=== PATIENT | female | born 1975 | race Asian ===

== ENCOUNTER 2022-10-10 19:41 | Inpatient (IN) | payer BC ==
[~2022-10-10] VITALS: Ht 160 cm; Wt 49.9 kg
[2022-10-10] MEDS ORDERED: SODIUM CHLORIDE 0.9% 1000ML BAG (SEPSIS BOLUS) IV ONE (20:30)
[2022-10-10 20:49] LABS: CHLORIDE 93 mEq/L (98-107); INDEX HEMOLYSI 3 (1-3); INDEX ICTERIC 5 (1-4); INDEX LIPEMIC 1 (1-3); POTASSIUM 5.7 mEq/L (3.5-5.1); SODIUM 124 mEq/L (136-145)
[2022-10-10 20:59] LABS: ALANINE AMINOTRANSFERASE 353 IU/L (13-61); ALBUMIN 1.4 g/dL (3.4-5.0); BILIRUBIN TOTAL 19.2 mg/dL (0.1-1.0); CALCIUM 10.7 mg/dL (8.5-10.1); CARBON DIOXIDE 16 mEq/L (21-32); CREATININE 1.7 mg/dL (0.6-1.3); ETHANOL BLOOD < 10 mg/dL (-10); GLUCOSE 104 mg/dL (70-105); NT PRO B-TYPE NATRIURETIC PEP 128 pg/mL (5-125); PROTEIN TOTAL 4.6 g/dL (6.0-8.3); TROPONIN I HIGH SENSITIVITY 14 ng/L (<54)
[2022-10-10 21:00] LABS: LACTIC ACID 4.4 mmol/L (0.4-2.0)
[2022-10-10 21:03] LABS: UREA NITROGEN BLOOD 82 mg/dL (7-21)
[2022-10-10 21:16] LABS: HCG SCREEN NEGATIVE
[2022-10-10 21:38] LABS: MEAN CORPUSCULAR HEMOGLOBIN 32.6 pg (28.0-32.0); MEAN CORPUSCULAR HGB CONC 32.5 g/dL (31.0-37.0); MEAN CORPUSCULAR VOLUME 100.2 fL (81.0-99.0); RED BLOOD CELL COUNT 2.15 mill/uL (4.2-5.4); RED CELL DISTRIBUTION WIDTH 20.8 % (11.6-14.6); WHITE BLOOD COUNT 3.6 x1000/uL (4.5-11.0)
[2022-10-10 21:46] LABS: ASPARTATE AMINOTRANSFERASE 5008 IU/L (15-37)
[2022-10-10 21:54] LABS: DIFFERENTIAL COMMENT 1
[2022-10-10 21:58] LABS: HEMATOCRIT. 21.5 % (36.0-48.0); PLATELET 36 x1000/uL (130-400)
[2022-10-10] MEDS ORDERED: ALBUTEROL (0.083%) 2.5MG/3ML NEB HHN ONE (22:15)
[2022-10-10] MEDS ORDERED: CALCIUM CHLORIDE 1GM/10ML SYR IV ONE (22:15)
[2022-10-10] MEDS ORDERED: CEFTRIAXONE 1GM PREMIX 50 ML IV ONE (22:15)
[2022-10-10] MEDS ORDERED: SODIUM BICARBONATE 8.4% 1 MEQ/ML 50ML SYR IV ONE (22:15)
[2022-10-10 22:25] LABS: ANISOCYTOSIS 2+; PLATELET ESTIMATE DECREASED
[2022-10-10] MEDS ORDERED: VANCOMYCIN 1G PREMIX 200 ML IV SCH (22:30)
[2022-10-10] MEDS ORDERED: CLONIDINE 0.1MG TABLET PO PRN (23:15)
[2022-10-10] MEDS ORDERED: DEXT 5%/0.9% NACL 1,000 ML IV ONE (23:15)
[2022-10-10] MEDS ORDERED: IPRATROPIUM/ALBUTEROL 0.5-3(2.5)MG/3ML NEB HHN PRN (23:15)
[2022-10-10] MEDS ORDERED: PIPERACILLIN/TAZ 3.375G PREMIX 50 ML IV NR (23:15)
[2022-10-10] MEDS ORDERED: ZOLPIDEM TARTRATE 5MG TABLET PO PRN (23:15)
[2022-10-10] MEDS ORDERED: ENOXAPARIN 40MG/0.4ML SYR SUBCUT SCH (23:15)
[2022-10-10] MEDS ORDERED: DOCUSATE SODIUM 100MG CAPSULE PO PRN (23:15)
[2022-10-10] MEDS ORDERED: ACETAMINOPHEN 325MG TABLET PO PRN ×2 (23:15)
[2022-10-10] MEDS ORDERED: GUAIFENESIN 200MG/10ML SUGAR FREE UDC PO PRN (23:15)
[2022-10-10] MEDS ORDERED: ONDANSETRON HCL 4MG/2ML INJ IV PRN (23:15)
[2022-10-10] MEDS ORDERED: LORAZEPAM 0.5MG TABLET PO PRN (23:15)
[2022-10-10 23:46] VITALS: PULSE 93; RESP 18; O2SAT 98
[2022-10-11] LABS: BG BASE EXCESS -4.8 mmol/L (-2.0-2.0); BG CARBOXYHEMOGLOBIN 0.7 % (0.5-1.5); BG DEOXYHEMOGLOBIN 1.3 % (0.0-5.0); BG FRACTION INSPIRED OXYGEN 32; BG HCO3 ACT 18.5 mmol/L (22.0-26.0); BG METHEMOGLOBIN 0.1 % (0.0-1.5); BG OXYGEN SATURATION 98.7 % (92.0-98.5); BG OXYHEMOGLOBIN 97.9 % (94.0-97.0); BG PCO2 27.6 mmHg (35.0-45.0); BG PH 7.445 (7.350-7.450); BG PO2 136.8 mmHg (75.0-100.0); BG SAMPLE SITE RIGHT RADIAL; BG TOTAL HEMOGLOBIN 8.2 g/dL (12.0-18.0); BG VENT MODE NASAL CANNULA
[2022-10-11 01:06] LABS: T4 FREE 0.83 ng/dL (0.76-1.46); THYROID STIMULATING HORMONE 0.44 uIU/mL (0.36-3.74)
[2022-10-11 01:56] LABS: VITAMIN B12 SERUM > 2000 pg/mL (211-911)
[2022-10-11] MEDS ORDERED: SODIUM CHLORIDE 0.9% 250 ML IV ONE (02:30)
[2022-10-11 02:41] VITALS: BP 85/46; PULSE 85; RESP 18; TEMP 97.1
[2022-10-11 03:37] LABS: BILIRUBIN DIRECT 15.1 mg/dL (0.0-0.2)
[2022-10-11 05:14] LABS: PROTHROMBIN TIME 39.8 sec (9.6-11.0)
[2022-10-11 05:16] LABS: D-DIMER 20.2 mg/L FEU (<0.50); INR 4.1
[2022-10-11] MEDS: PIPERACILLIN/TAZOBACTAM 3.375G in DEXT 5% WATER 50ML IV SCH ×3 (06:13→23:48)
[2022-10-11 07:56] VITALS: BP 67/34; PULSE 78; RESP 20; TEMP 98
[2022-10-11 08:27] LABS: CREATINE KINASE MB FRACTION 1.5 ng/mL (0.5-3.6)
[2022-10-11] MEDS ORDERED: DEXT 5%/0.45% NACL 1000ML 1,000 ML IV SCH ×2 (08:30→13:15)
[2022-10-11 09:17] LABS: HEMATOCRIT 22.5 % (36.0-48.0); HEMOGLOBIN 7.4 g/dL (12.0-16.0); MEAN CORPUSCULAR HEMOGLOBIN 32.9 pg (28.0-32.0); MEAN CORPUSCULAR VOLUME 99.7 fL (81.0-99.0); RED BLOOD CELL COUNT 2.26 mill/uL (4.2-5.4); RED CELL DISTRIBUTION WIDTH 20.8 % (11.6-14.6)
[2022-10-11 09:34] LABS: POTASSIUM 5.7 mEq/L (3.5-5.1)
[2022-10-11 09:54] LABS: CALCIUM 11.7 mg/dL (8.5-10.1); CREATININE 1.8 mg/dL (0.6-1.3); PHOSPHORUS 7.6 mg/dL (2.5-4.9)
[2022-10-11 11:02] VITALS: BP 69/33; PULSE 73; RESP 18; TEMP 98
[2022-10-11 12:09] LABS: INR 4.4; PARTIAL THROMBOPLASTIN TIME 118.9 sec (23.4-31.0); PROTHROMBIN TIME 43.4 sec (9.6-11.0)
[2022-10-11 12:16] LABS: HEPATITIS B SURFACE ANTIGEN NEGATIVE
[2022-10-11 12:44] LABS: HEPATITIS B CORE AB IGM NEGATIVE; HEPATITIS C VIR.AB 0.15 INDEXVAL (0.00-0.80)
[2022-10-11 12:46] LABS: HEPATITIS A AB IGM NEGATIVE (NEGATIVE)
[2022-10-11] MEDS ORDERED: DEXTROSE 50% WATER 50ML SYRINGE IV NR (13:30)
[2022-10-11] MEDS ORDERED: ALBUTEROL (0.5%) 2.5MG/0.5ML NEB HHN ONE (13:30)
[2022-10-11] MEDS ORDERED: SODIUM POLYSTYRENE SULFONATE 15 G/60 ML BOT PO NR (13:30)
[2022-10-11] MEDS ORDERED: ALBUTEROL (0.083%) 2.5MG/3ML NEB ONE (14:06)
[2022-10-11 14:10] VITALS: PULSE 80; RESP 24
[2022-10-11] MEDS: SODIUM BICARBONATE 100 MEQ in SODIUM CHLORIDE 0.45% 1,000 ML IV SCH (15:07)
[2022-10-11 15:47] VITALS: BP 77/41; PULSE 79; RESP 18; TEMP 98
[2022-10-11 15:50] LABS: PLATELET 34 x1000/uL (130-400)
[2022-10-11 16:36] LABS: CLARITY URINE CLOUDY (CLEAR); COLOR URINE DARK YELLOW (YELLOW); GLUCOSE URINE NEGATIVE (NEGATIVE); KETONES URINE NEGATIVE (NEGATIVE); LEUKOCYTE ESTERASE URINE TRACE (NEGATIVE); NITRITE URINE NEGATIVE (NEGATIVE); OCCULT BLOOD URINE NEGATIVE (NEGATIVE); PH URINE 5.5 (4.5-8.0); PROTEIN URINE TRACE (NEGATIVE); SPECIFIC GRAVITY URINE 1.017 (1.005-1.030); UROBILINOGEN URINE 0.2 E.U./dL (0.2-1.0)
[2022-10-11 16:43] LABS: SODIUM URINE RANDOM < 5 mEq/L
[2022-10-11 16:48] LABS: BACTERIA URINE 3+; SQUAMOUS EPITHELIAL CELL URINE 1+ /lpf (RARE/1+)
[2022-10-11 16:49] LABS: FINE GRANULAR CASTS URINE 0-5 /lpf; RBC URINE 0-2 /hpf (0-2); WBC URINE 0-2 /hpf (0-2)
[2022-10-11 16:51] LABS: *AMPHETAMINES SCREEN URINE NEGATIVE (NEGATIVE); *BARBITURATES SCREEN URINE NEGATIVE (NEGATIVE); *BENZODIAZEPINES SCREEN URINE NEGATIVE (NEGATIVE); *COCAINE SCREEN URINE NEGATIVE (NEGATIVE); CANNABINOID URINE SCREEN NEGATIVE (NEGATIVE); ECSTASY MDMA SCREEN URINE NEGATIVE (NEGATIVE); METHADONE URINE SCREEN NEGATIVE (NEGATIVE); OPIATES URINE SCREEN NEGATIVE (NEGATIVE); PHENCYCLIDINE URINE SCREEN NEGATIVE (NEGATIVE)
[2022-10-11] MEDS: THIAMINE HCL 500 MG in SODIUM CHLORIDE 0.9% 95 ML IV SCH (17:00)
[2022-10-11 17:28] LABS: CREATINE KINASE MB FRACTION 3.4 ng/mL (0.5-3.6)
[2022-10-11 18:07] LABS: OSMOLALITY URINE 443 mOsm/kg (500-850)
[2022-10-11 18:46] LABS: AMMONIA 151 uMol/L (<32)
[2022-10-11] MEDS ORDERED: ALBUMIN HUMAN 25GM/100ML (25%) IV NR (19:30)
[2022-10-11] MEDS: LACTULOSE ENEMA 1,000ML BOTTLE PR NR (20:58)
[2022-10-11] MEDS ORDERED: VANCOMYCIN 750MG PREMIX 150 ML IV SCH (21:00)
[2022-10-11] MEDS ORDERED: VANCOMYCIN 1G PREMIX 200 ML IV SCH (23:00)
[2022-10-12] VITALS (28 sets, daily range): BP systolic 67–120; BP diastolic 37–68; PULSE 73–93; RESP 18–41; TEMP 97.3; O2SAT 92
[2022-10-12] MEDS: THIAMINE HCL 500 MG in SODIUM CHLORIDE 0.9% 95 ML IV SCH (00:48)
[2022-10-12] MEDS: LACTULOSE ENEMA 1,000ML BOTTLE PR NR (02:29)
[2022-10-12 03:04] LABS: CALCIUM 10.2 mg/dL (8.5-10.1); CREATININE 2.7 mg/dL (0.6-1.3)
[2022-10-12 03:38] LABS: POTASSIUM 6.8 mEq/L (3.5-5.1)
[2022-10-12] MEDS ORDERED: DEXTROSE 50% WATER 50ML SYRINGE IV NR ×3 (03:45)
[2022-10-12] MEDS ORDERED: CALCIUM GLUCONATE 100MG/ML 10ML VIAL IV NR (03:45)
[2022-10-12] MEDS ORDERED: INSULIN REGULAR (HUMULIN R) 300UNITS/3ML VIAL IV NR (03:45)
[2022-10-12] MEDS ORDERED: SODIUM POLYSTYRENE SULFONATE 15 G/60 ML BOT PO NR (03:45)
[2022-10-12] MEDS ORDERED: ALBUTEROL (0.083%) 2.5MG/3ML NEB HHN NR (04:00)
[2022-10-12] MEDS ORDERED: DEXT 5%/0.9% NACL 1,000 ML IV SCH (04:00)
[2022-10-12] MEDS ORDERED: ALBUMIN HUMAN 25GM/100ML (25%) IV NR (04:15)
[2022-10-12] MEDS ORDERED: NOREPINEPHRINE 8MG/250ML PMX 250ML IV PRN (04:15)
[2022-10-12] MEDS ORDERED: NOREPINEPHRINE 8 MG in DEXT 5% WATER 242 ML IV PRN (04:15)
[2022-10-12] MEDS ORDERED: SODIUM BICARBONATE 8.4% 1 MEQ/ML 50ML SYR IV NR (04:58)
[2022-10-12] MEDS ORDERED: DEXT 10% WATER 1,000 ML IV SCH (05:00)
[2022-10-12] MEDS: SODIUM BICARBONATE 100 MEQ in SODIUM CHLORIDE 0.45% 1,000 ML IV SCH (06:21)
[2022-10-12 07:51] LABS: MEAN CORPUSCULAR HEMOGLOBIN 33.6 pg (28.0-32.0); MEAN CORPUSCULAR HGB CONC 33.7 g/dL (31.0-37.0); MEAN CORPUSCULAR VOLUME 99.8 fL (81.0-99.0); MEAN PLATELET VOLUME 7.4 fl (7.4-10.4); RED BLOOD CELL COUNT 1.57 mill/uL (4.2-5.4); RED CELL DISTRIBUTION WIDTH 21.4 % (11.6-14.6); WHITE BLOOD COUNT 3.8 x1000/uL (4.5-11.0)
[2022-10-12] MEDS ORDERED: PHYTONADIONE 10MG/ML AMP SUBCUT SCH (07:53)
[2022-10-12 08:17] LABS: DIFFERENTIAL COMMENT 1
[2022-10-12 08:27] LABS: PROTHROMBIN TIME > 100.0 sec (9.6-11.0)
[2022-10-12 08:28] LABS: INR > 10.0
[2022-10-12 08:29] LABS: HEMATOCRIT. 15.6 % (36.0-48.0); HEMOGLOBIN. 5.3 g/dL (12.0-16.0); PLATELET 22 x1000/uL (130-400)
[2022-10-12] MEDS ORDERED: LIDOCAINE HCL 1% 10 MG/ML 10ML VIAL ONE (08:30)
[2022-10-12 08:37] LABS: BG BASE EXCESS -3.6 mmol/L (-2.0-2.0); BG CARBOXYHEMOGLOBIN 2.6 % (0.5-1.5); BG DEOXYHEMOGLOBIN 4.6 % (0.0-5.0); BG FRACTION INSPIRED OXYGEN 36; BG HCO3 ACT 20.6 mmol/L (22.0-26.0); BG METHEMOGLOBIN 1.6 % (0.0-1.5); BG OXYGEN SATURATION 95.2 % (92.0-98.5); BG OXYHEMOGLOBIN 91.2 % (94.0-97.0); BG PCO2 32.7 mmHg (35.0-45.0); BG PH 7.417 (7.350-7.450); BG PO2 85.1 mmHg (75.0-100.0); BG SAMPLE SITE RIGHT RADIAL; BG TOTAL HEMOGLOBIN 5.5 g/dL (12.0-18.0); BG VENT MODE NASAL CANNULA
[2022-10-12 08:44] LABS: INDEX HEMOLYSI 4 (1-3)
[2022-10-12 09:26] LABS: AMMONIA 82 uMol/L (<32)
[2022-10-12 09:37] LABS: ALBUMIN 2.4 g/dL (3.4-5.0); BILIRUBIN TOTAL 16.9 mg/dL (0.1-1.0); CALCIUM 9.8 mg/dL (8.5-10.1); CREATININE 2.9 mg/dL (0.6-1.3); PROTEIN TOTAL 4.3 g/dL (6.0-8.3)
[2022-10-12 09:38] LABS: ANISOCYTOSIS 3+; MICROCYTOSIS 2+; NUCLEATED RED BLOOD CELLS 5 /100 WBC
[2022-10-12 09:39] LABS: PLATELET ESTIMATE MARKEDLY DECREASED
[2022-10-12] MEDS ORDERED: MORPHINE SULFATE 250 MG in DEXT 5% WATER 240 ML IV PRN (10:00)
[2022-10-12] MEDS ORDERED: SCOPOLAMINE HYDROBROMIDE PATCH 72HR TD SCH (10:00)
[2022-10-12] MEDS ORDERED: MORPHINE SULFATE 250 MG in DEXT 5% WATER 225 ML IV PRN (10:30)
[2022-10-12 10:40] LABS: BILIRUBIN DIRECT 11.9 mg/dL (0.0-0.2)
[2022-10-12 10:41] LABS: POTASSIUM 6.1 mEq/L (3.5-5.1)
[2022-10-12] MEDS ORDERED: LACTULOSE 20G/30ML UDC PO SCH (14:00)
[2022-10-12] MEDS ORDERED: PIPERACILLIN/TAZOBACTAM 3.375 G in DEXTROSE 5% WATER 50 ML IV SCH (21:00)
[2022-10-13 08:11] LABS: ALPHA FETOPROTEIN TUMOR MARKER < 1.8 ng/mL (0.0-6.4); CA 19-9 974 U/mL (0-35)
== END 2022-10-13 04:58 | DRG 871 ==
LOC: ER 19:41 → EDBEDREQ 21:06 → EDBEDREQSVC 21:06 → 7WST 21:08 → EDBEDREQ 21:11 → MICUSO 10-12 06:16 → 6WST 10-12 13:40
PROVIDERS: ADMIT Internal Medicine; ATTEND Internal Medicine
DX: A41.9 Sepsis, unspecified organism (principal); E43 Unspecified severe protein-calorie malnutrition; R65.21 Severe sepsis with septic shock; G93.41 Metabolic encephalopathy; J18.9 Pneumonia, unspecified organism; J96.01 Acute respiratory failure with hypoxia; N17.0 Acute kidney failure with tubular necrosis; I26.99 Other pulmonary embolism without acute cor pulmonale; C22.9 Malignant neoplasm of liver, not specified as primary or secondary; D61.818 Other pancytopenia; D68.9 Coagulation defect, unspecified; E87.1 Hypo-osmolality and hyponatremia; E87.20 Acidosis, unspecified; I13.0 Hypertensive heart and chronic kidney disease with heart failure and stage 1 through stage 4 chronic kidney disease, or unspecified chronic kidney disease; Z68.1 Body mass index [BMI] 19.9 or less, adult; E78.5 Hyperlipidemia, unspecified; Z66 Do not resuscitate; Z51.5 Encounter for palliative care; D50.9 Iron deficiency anemia, unspecified; D53.9 Nutritional anemia, unspecified; E83.41 Hypermagnesemia; E11.22 Type 2 diabetes mellitus with diabetic chronic kidney disease; E83.52 Hypercalcemia; E86.0 Dehydration; E87.5 Hyperkalemia; I50.9 Heart failure, unspecified; E11.649 Type 2 diabetes mellitus with hypoglycemia without coma; K72.90 Hepatic failure, unspecified without coma; N18.9 Chronic kidney disease, unspecified; Z85.05 Personal history of malignant neoplasm of liver
CPT/HCPCS: 36415; 36600; 71045; 71250; 74176; 80048; 80053; 80061; 80076; 80202; 80305; 80320; 81003; 82105; 82140; 82248; 82330; 82375; 82378; 82550; 82553; 82607; 82746; 82805; 82962; 83010; 83036; 83540; 83550; 83605; 83615; 83735; 83880; 83930; 83935; 83970; 84100; 84145; 84300; 84439; 84443; 84484; 84703; 85025; 85027; 85044; 85379; 86301; 86705; 86709; 86803; 86850; 86900; 86920; 87340; 93005; 93306; 94644; 99291; A6261; J0610; J0696; J1815; J2270; J2274; J2543; J3370; J3411; J3490; J7030; J7050; J7060; P9047; A4315; G0480